=== PATIENT | female | born 1990 | race American Indian/Alaskan Native ===

== ENCOUNTER 2017-08-30 07:31 | Inpatient (IN) | payer MEDICAID ==
[2017-08-30 08:14] LABS: Basophils % (Auto) 0.6 % (0.0-1.8); Eosinophils % (Auto) 2.3 % (0.0-4.3); Hematocrit 31.8 % (30.3-42.9); Hemoglobin 10.4 gm/dl (10.1-14.3); Mean Corpuscular HGB Conc 33 % (30-34); Mean Corpuscular Hemoglobin 29 pg (28-32); Mean Corpuscular Volume 90 fl (79-97); Platelet Count 452 K/mm3 (140-440); Red Blood Count 3.55 M/mm3 (3.65-5.03); Red Cell Distribution Width 14.3 % (13.2-15.2); White Blood Count 9.6 K/mm3 (4.5-11.0)
[2017-08-30 08:34] LABS: Anion Gap 20 mmol/L; BUN/Creatinine Ratio 13; Blood Urea Nitrogen 9 mg/dL (7-17); Calcium 9.2 mg/dL (8.4-10.2); Carbon Dioxide 21 mmol/L (22-30); Chloride 100.8 mmol/L (98-107); Glucose 75 mg/dL (65-100); Potassium 3.8 mmol/L (3.6-5.0); Sodium 138 mmol/L (137-145)
--- NOTE | 2017-08-30 09:31 | Event Note ---
Date: 08/30/17929 vss in sub waiting
--- NOTE | 2017-08-30 10:33 | XRay Report ---
FINAL REPORT EXAM: XR CHEST 1V AP HISTORY: Shortness of breath TECHNIQUE: Chest, one view PRIORS: None. FINDINGS: The heart size is normal. Mediastinal contours are normal. Pulmonary vasculature is not congested. The lungs are clear. There are no pleural effusion seen. There is no evidence of pneumothorax. IMPRESSION: There is no acute abnormality identified.
[2017-08-30] MEDS ORDERED: NACL 0.9% 500 ML 500 ML IV ONE (12:35)
[2017-08-30] MEDS ORDERED: MORPHINE IV ONE (12:35)
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
--- NOTE | 2017-08-30 14:20 | Cat Scan Report ---
FINAL REPORT EXAM: CT ANGIO CHEST HISTORY: CP, elevated dimer TECHNIQUE: CT angiography of the chest performed. 100 cc Omnipaque 350 IV was administered. Coronal and sagittal reformatted images were obtained. PRIORS: None. FINDINGS: There is a solitary pulmonary embolus in a segmental segmental artery in the right lower lobe. No other pulmonary emboli are seen. There is no pleural effusion or pneumothorax. The lungs are clear. There is no significant mediastinal or hilar mass seen. IMPRESSION: There is a single nonocclusive segmental pulmonary embolus and right lower lobe.
[2017-08-30] MEDS ORDERED: HEPARIN 10,000 UNITS/10 ML IV ONE (14:29)
[2017-08-30] MEDS ORDERED: DILAUDID IV ONE ×2 (14:30→20:29)
[2017-08-30] MEDS ORDERED: HEPARIN/ 0.45% NACL-25,000 UNIT/500 ML 25,000 UNIT/500 ML BAG IV SCH (15:00)
[2017-08-30 15:33] LABS: INR 1.01 (0.87-1.13)
[2017-08-30 15:34] LABS: Partial Thromboplastin Time 28.1 Sec. (24.2-36.6)
[2017-08-30] MEDS ORDERED: DULCOLAX PR PRN (17:29)
[2017-08-30] MEDS ORDERED: TYLENOL PO PRN (17:29)
[2017-08-30] MEDS ORDERED: MILK OF MAGNESIA PO PRN (17:29)
[2017-08-30] MEDS ORDERED: DILAUDID IV PRN (17:35)
[2017-08-30] MEDS ORDERED: PERCOCET 5/325 PO PRN (17:35)
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
[2017-08-30] MEDS ORDERED: DILAUDID ONE (18:24)
[2017-08-30] MEDS: APRESOLINE IV PRN (18:30)
[2017-08-30] MEDS ORDERED: RESTORIL PO ONE (20:31)
[2017-08-30] MEDS: MS CONTIN ER PO SCH (21:07)
[2017-08-31] MEDS: DILAUDID IV PRN ×5 (00:58→21:56)
[2017-08-31] MEDS: MS CONTIN ER PO SCH ×4 (05:30→21:54)
[2017-08-31] MEDS: ZOFRAN IV PRN ×2 (07:53→16:49)
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
[2017-08-31] MEDS: ELIQUIS PO SCH ×2 (09:31→21:55)
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
[2017-08-31] MEDS: PERCOCET 5/325 PO PRN (12:38)
[2017-08-31] MEDS: APRESOLINE IV PRN (16:49)
[2017-08-31] MEDS ORDERED: RESTORIL PO PRN (22:00)
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
[2017-09-01] MEDS: DILAUDID IV PRN ×5 (03:57→20:49)
[2017-09-01] MEDS: MS CONTIN ER PO SCH ×3 (05:24→23:17)
[2017-09-01 05:29] LABS: Basophils % (Auto) 0.3 % (0.0-1.8); Eosinophils % (Auto) 1.2 % (0.0-4.3); Hematocrit 32.1 % (30.3-42.9); Hemoglobin 10.8 gm/dl (10.1-14.3); Mean Corpuscular HGB Conc 34 % (30-34); Mean Corpuscular Hemoglobin 30 pg (28-32); Mean Corpuscular Volume 90 fl (79-97); Platelet Count 420 K/mm3 (140-440); Red Blood Count 3.57 M/mm3 (3.65-5.03); Red Cell Distribution Width 14.3 % (13.2-15.2); White Blood Count 8.6 K/mm3 (4.5-11.0)
[2017-09-01 05:42] LABS: Anion Gap 15 mmol/L; BUN/Creatinine Ratio 13; Blood Urea Nitrogen 8 mg/dL (7-17); Calcium 9.2 mg/dL (8.4-10.2); Carbon Dioxide 27 mmol/L (22-30); Chloride 95.7 mmol/L (98-107); Glucose 92 mg/dL (65-100); Potassium 3.9 mmol/L (3.6-5.0); Sodium 134 mmol/L (137-145)
--- NOTE | 2017-09-01 08:08 | Vascular Lab Report ---
LOWER EXTREMITY VENOUS DUPLEX: REASON FOR EXAM: Edema of the lower extremities. COMMENTS ON THE RIGHT: All veins visualized are freely compressible without evidence of internal echogenicity. Flow is spontaneous and phasic throughout. COMMENTS ON THE LEFT: All veins visualized are freely compressible without evidence of internal echogenicity. Flow is spontaneous and phasic throughout. IMPRESSION: No evidence of acute or chronic deep venous thrombosis in either lower extremity.
[2017-09-01] MEDS: ELIQUIS PO SCH ×2 (09:16→23:18)
[2017-09-01] MEDS: NORVASC PO SCH (09:16)
--- NOTE | 2017-09-01 09:17 | Hem/Onc Progress Note ---
Assessment and Plan Patient can be discharged on the eliquis. I can follow with the patient as op Subjective Date of service: 09/01/17 Interval history: still having pain. Objective - Constitutional Vitals: Last Vital Signs Temp 98.5 F 09/01/17 07:33 Pulse 106 H 09/01/17 07:33 Resp 16 09/01/17 07:33 BP 145/102 09/01/17 07:33 Pulse Ox 100 09/01/17 07:33 - Neck Neck: supple - Respiratory Respiratory: bilateral: CTA - Cardiovascular Rhythm: regular - Gastrointestinal General gastrointestinal: Present: soft - Labs Lab Results: Laboratory Results - last 24 hr 09/01/17 09/01/17 04:46 04:46 WBC 8.6 RBC 3.57 L Hgb 10.8 Hct 32.1 MCV 90 MCH 30 MCHC 34 RDW 14.3 Plt Count 420 Lymph % (Auto) 16.7 [place] % (Auto) 5.7 Eos % (Auto) 1.2 Baso % (Auto) 0.3 Lymph # 1.4 [place] # 0.5 Eos # 0.1 Baso # 0.0 Seg Neutrophils % 76.1 H Seg Neutrophils # 6.5 Sodium 134 L Potassium 3.9 Chloride 95.7 L Carbon Dioxide 27 Anion Gap 15 BUN 8 Creatinine 0.6 L Estimated GFR > 60 BUN/Creatinine Ratio 13 Glucose 92 Calcium 9.2
[2017-09-01] MEDS: ZOFRAN IV PRN (09:21)
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
[2017-09-01] MEDS ORDERED: ALUM-MAG HYDROX-SIMETH 200-200-20MG/5ML PO PRN (12:24)
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
[2017-09-01] MEDS ORDERED: NACL ONE (19:56)
--- NOTE | 2017-09-01 21:10 | Cat Scan Report ---
FINAL REPORT PROCEDURE: CT ABDOMEN PELVIS W CON TECHNIQUE: Computerized axial tomography of the abdomen and pelvis was performed after the IV injection of iodinated nonionic contrast. HISTORY: Nausea and vomiting. COMPARISON: No prior studies are available for comparison. FINDINGS: Lower Lung epstein: Thin linear band of atelectasis or scarring seen in the left posterior costophrenic angle. Lung bases otherwise are unremarkable. Upper Abdomen: The liver is unremarkable with the exception of a slightly ill-defined area of decreased density along the right side of the falciform ligament which is a common area for focal fatty infiltration. On the delayed images this is isointense to the liver. The liver is otherwise unremarkable. Gallbladder is unremarkable. The adrenal glands, the pancreas and the spleen are unremarkable. Kidneys, Ureters and Urinary bladder: Multiple asymmetric areas of cortical thinning visualized in the renal cortex of the right kidney appear to represent parenchymal scars. No renal masses are identified. There is no hydronephrosis. Small nonobstructing calculus measuring 4 millimeters suspected in the lower 3rd of the right kidney. The kidneys, ureters and urinary bladder otherwise are unremarkable. Retroperitoneum: Abdominal aorta appears normal. Nonspecific subcentimeter lymph nodes are seen in the retroperitoneum. No pathologically enlarged lymph nodes are identified. Bowel: No focal bowel abnormalities are identified. No evidence of bowel obstruction ascites or free intraperitoneal gas. Normal-appearing appendix projects into the mid pelvis posteriorly. Reproductive organs: Uterus and right adnexa are unremarkable. There is a lobulated density in the left adnexa with both fat-density portions and small calcifications. The appearance suggest a teratoma. This measures 3.4 x 5.3 centimeters. 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 Skiff Operator consultation suggested. Probable focal fatty infiltration of the liver adjacent to the right side of the falciform ligament. If clinically indicated MRI of the liver could be obtained with in and out of phase imaging to confirm. Multiple renal cortical scars visualize right kidney. Small nonobstructing calculus visualized lower 3rd right kidney. No other abnormalities are identified.
[2017-09-01] MEDS: REMERON PO SCH (23:19)
[2017-09-02] MEDS: DILAUDID IV PRN ×6 (01:13→22:10)
[2017-09-02] MEDS: APRESOLINE IV PRN (05:17)
[2017-09-02] MEDS: MS CONTIN ER PO SCH ×3 (06:21→21:58)
--- NOTE | 2017-09-02 09:35 | Hem/Onc Progress Note ---
Assessment and Plan Continue eliquis. Would need it for 4-6 months. Given my business card. I can follow her as outpatient. CT findings noted. May need PATENTS EXAMINER evaluation. Subjective Date of service: 09/02/17 Interval history: still having pain. CT findings noted . Denies any active bleeding. Tolerating eliquis well Objective - Constitutional Vitals: Last Vital Signs Temp 98.5 F 09/02/17 07:05 Pulse 118 H 09/02/17 07:05 Resp 15 09/02/17 07:05 BP 134/92 09/02/17 07:05 Pulse Ox 99 09/02/17 07:05 - Neck Neck: supple - Respiratory Respiratory effort: Positive: normal Respiratory: bilateral: diminished - Cardiovascular Rhythm: regular - Gastrointestinal General gastrointestinal: Present: soft
[2017-09-02] MEDS: ELIQUIS PO SCH ×2 (09:36→22:09)
[2017-09-02] MEDS: NORVASC PO SCH (09:36)
[2017-09-02] MEDS ORDERED: LOPRESSOR PO ONE (09:50)
[2017-09-02] MEDS: ZOFRAN IV PRN (10:11)
[2017-09-02] MEDS: LOPRESSOR PO SCH ×2 (13:39→21:59)
[2017-09-02] MEDS ORDERED: LOPRESSOR FEEDTUBE STA (13:42)
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
[2017-09-02] MEDS: REMERON PO SCH (21:59)
[2017-09-03] MEDS: DILAUDID IV PRN ×3 (02:25→12:51)
[2017-09-03 05:57] LABS: Hematocrit 34.3 % (30.3-42.9); Hemoglobin 11.5 gm/dl (10.1-14.3)
[2017-09-03] MEDS: MS CONTIN ER PO SCH ×2 (06:13→13:39)
[2017-09-03] MEDS: NORVASC PO SCH (11:17)
[2017-09-03] MEDS: LOPRESSOR PO SCH (11:18)
[2017-09-03 11:19] VITALS: BP 144/97
--- NOTE | 2017-09-03 11:50 | Hem/Onc Progress Note ---
Assessment and Plan Patient to continue eliquis.. If she has to have any procedures, it will have to be held for 2 days. I have given the patient my card. I'll follow-up as outpatient. If ASTHMA EDUCATOR wants to talk to me op and they can call me also. Subjective Date of service: 09/03/17 Interval history: still having pain. CT findings noted . Denies any active bleeding. Tolerating eliquis well. ASTHMA EDUCATOR note appreciated Objective - Constitutional Vitals: Last Vital Signs Temp 98.4 F 09/03/17 07:40 Pulse 114 H 09/03/17 11:18 Resp 18 09/03/17 08:44 BP 144/97 09/03/17 11:18 Pulse Ox 98 09/03/17 07:40 General appearance: no acute distress Performance status: 2- selfcare, ambulatory - Neck Neck: supple - Respiratory Respiratory effort: Positive: normal Respiratory: bilateral: diminished - Cardiovascular Rhythm: regular - Gastrointestinal General gastrointestinal: Present: soft - Labs Lab Results: Laboratory Results - last 24 hr 09/03/17 05:27 Hgb 11.5 Hct 34.3 Plt Count 455 H
[2017-09-03] MEDS: ELIQUIS PO SCH (13:39)
[2017-09-03] MEDS: PERCOCET 5/325 PO PRN (14:40)
== END 2017-09-03 15:30 | disposition home or self-care (01) | DRG 176 ==
LOC: ED 07:31 → 3A 17:29
PROVIDERS: ADMIT Internal Medicine; ATTEND Internal Medicine
DX: I26.99 Other pulmonary embolism without acute cor pulmonale (principal); I10 Essential (primary) hypertension; F32.9 Major depressive disorder, single episode, unspecified; F41.9 Anxiety disorder, unspecified; Z91.013 Allergy to seafood; Z82.49 Family history of ischemic heart disease and other diseases of the circulatory system; F43.10 Post-traumatic stress disorder, unspecified
CPT/HCPCS: 36415; 71010; 71275; 74177; 80048; 84484; 84703; 85014; 85018; 85025; 85049; 85379; 85520; 85610; 85730; 93005; 93010; 93970; 96374; 96375; J0360; J1170; J1644; J2270; J2405; J7040; Q9967

== ENCOUNTER 2018-10-16 18:32 | Emergency (ER) | payer MEDICAID ==
[2018-10-16 18:56] VITALS: BP 149/104
[2018-10-16] MEDS ORDERED: XYLOCAINE 1% MPF 5 mL INFILTRATI ONE (19:18)
[2018-10-16] MEDS ORDERED: CLEOCIN PO ONE (19:18)
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
[2018-10-16] MEDS ORDERED: NORCO 5/325 PO ONE (19:23)
--- NOTE | 2018-10-16 20:22 | XRay Report ---
FINAL REPORT EXAM: XR FINGER(S) 2+V RT HISTORY: swelling pain TECHNIQUE: AP view of the right hand and 2 additional views of the right index finger PRIORS: None. FINDINGS: The bones are normally aligned and mineralized. The joint spaces are well-preserved. There is no evid ence of acute fracture. There is prominent soft tissue swelling at the level of the middle phalanx of the index finger. There is no foreign body. IMPRESSION: Soft tissue swelling. No evidence of acute fracture or foreign body.
== END 2018-10-16 20:40 | disposition home or self-care (01) ==
LOC: ED 18:32
DX: L03.011 Cellulitis of right finger (principal)
CPT/HCPCS: 99283

== ENCOUNTER 2020-10-29 22:35 | Emergency (ER) | payer MEDICAID ==
[2020-10-29] MEDS ORDERED: ONDANSETRON 4 MG ODT TAB PO STA (23:50)
[2020-10-30 00:27] LABS: Alanine Aminotransferase 9 units/L (7-56); Albumin 4.2 g/dL (3.9-5)
[2020-10-30 00:30] LABS: Basophils % (Auto) 0.4 % (0.0-1.8); Bilirubin,Direct < 0.2 mg/dL (0-0.2); Eosinophils # (Auto) 0.1 K/mm3 (0.0-0.4); Eosinophils % (Auto) 1.5 % (0.0-4.3); Hemoglobin 12.3 gm/dl (10.1-14.3); Lymphocytes # (Auto) 2.3 K/mm3 (1.2-5.4); Lymphocytes % (Auto) 34.2 % (13.4-35.0); Mean Corpuscular HGB Conc 33 % (30-34); Mean Corpuscular Volume 91 fl (79-97); Monocytes # (Auto) 0.5 K/mm3 (0.0-0.8); Monocytes % (Auto) 7.6 % (0.0-7.3); Platelet Count 255 K/mm3 (140-440); Red Blood Count 4.06 M/mm3 (3.65-5.03); Red Cell Distribution Width 13.7 % (13.2-15.2)
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
[2020-10-30 02:22] VITALS: BP 119/76
[2020-10-30 02:59] LABS: Bilirubin,Urine NEG (Negative); Blood,Urine NEG (Negative); Color,Urine Yellow (Yellow); Mucus,Urine 2+ /HPF; Protein,Urine <15 mg/dL mg/dL (Negative)
== END 2020-10-30 02:22 | disposition home or self-care (01) ==
LOC: ED 22:35
DX: O21.8 Other vomiting complicating pregnancy (principal); Z79.899 Other long term (current) drug therapy; Z91.013 Allergy to seafood; Z98.890 Other specified postprocedural states; Z3A.01 Less than 8 weeks gestation of pregnancy
CPT/HCPCS: 36415; 80076; 81001; 83690; 84703; 85025; 87086; Q0162

== ENCOUNTER 2022-05-18 00:32 | Observation (INO) | payer MEDICAID ==
[2022-05-18 03:42] LABS: Basophils # (Auto) 0.1 K/mm3 (0.0-0.1); Basophils % (Auto) 0.7 % (0.0-1.8); Eosinophils # (Auto) 0.1 K/mm3 (0.0-0.4); Hematocrit 38.3 % (30.3-42.9); Hemoglobin 12.7 gm/dl (10.1-14.3); Lymphocytes # (Auto) 2.7 K/mm3 (1.2-5.4); Lymphocytes % (Auto) 37.5 % (13.4-35.0); Mean Corpuscular HGB Conc 33 % (30-34); Mean Corpuscular Volume 89 fl (79-97); Monocytes # (Auto) 0.4 K/mm3 (0.0-0.8); Monocytes % (Auto) 5.6 % (0.0-7.3); Platelet Count 206 K/mm3 (140-440); Red Blood Count 4.29 M/mm3 (3.65-5.03); Red Cell Distribution Width 13.7 % (13.2-15.2)
[2022-05-18 03:54] LABS: BUN/Creatinine Ratio 23; Blood Urea Nitrogen 18 mg/dL (7-17); Calcium 8.4 mg/dL (8.4-10.2); Hemolysis Index 7
[2022-05-18] MEDS ORDERED: NITROGLYCERIN 0.4 MG TAB SUBL SL ONE (04:40)
--- NOTE | 2022-05-18 04:40 | XRay Report ---
CHEST 1 VIEW 05/18/2022 3:26 AM INDICATION / CLINICAL INFORMATION: Chest Pain. COMPARISON: None available. FINDINGS: SUPPORT DEVICES: None. HEART / MEDIASTINUM: No significant abnormality. LUNGS / PLEURA: Bilateral mid and lower lung opacities No pneumothorax. ADDITIONAL FINDINGS: No significant additional findings. IMPRESSION: 1. Increased opacities in bilateral mid and lower lungs. Signer Name: Saul Ramos MD Signed: 05/18/2022 4:35 AM Workstation Name: [id number]
[2022-05-18] MEDS ORDERED: FUROSEMIDE 40 MG/4 ML INJ IV ONE (04:42)
[2022-05-18] MEDS ORDERED: MORPHINE 2 MG/1 ML INJ IV PRN (05:19)
[2022-05-18] MEDS ORDERED: MORPHINE 4 MG/1 ML INJ IV PRN (05:19)
[2022-05-18] MEDS ORDERED: ALBUTEROL 2.5 MG/3 ML NEBU IH PRN (05:19)
[2022-05-18] MEDS ORDERED: ACETAMINOPHEN 325 MG TAB PO PRN (05:19)
[2022-05-18] MEDS ORDERED: ONDANSETRON 4 MG/2 ML INJ IV PRN (05:19)
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
--- NOTE | 2022-05-18 05:29 | History and Physical Report ---
History of Present Illness Date of examination: 05/18/22 Date of admission: 05/18/22 Chief complaint: Dyspnea Respiratory distress History of present illness: 32 years old female with history of chf, pulmonary embolism, suicidal attempt was brought to the hospital because of dyspnea and respiratory distress for the past 2 days. Patient is breathing 30 times per minute. Patient denies any chest pain in the ER patient is found to have acute CHF exacerbation. Chest x- ray shows increased opacities in the bilateral mid and lower lungs. Past History Past Medical History: other (Pulmonary embolism suicidal attempt) Past Surgical History: No surgical history Social history: no significant social history Family history: no significant family history Medications and Allergies Allergies Allergy/AdvReac Type Severity Reaction Status Date / Time SEAFOOD Allergy Hives Uncoded 09/07/16 17:42 Home Medications Medication Instructions Recorded Confirmed Last Taken Type FLUoxetine HCL [Fluoxetine HCl] 10 mg PO QDAY 08/31/18 09/26/18 09/15/18 History Lovenox 40 mg SUB-Q QDAY 08/31/18 09/26/18 09/15/18 History Pnv No.95/Ferrous Fum/Folic AC 1 each PO QDAY 09/26/18 09/26/18 09/15/18 History [ Vitamin Tablet] Ibuprofen [Motrin 600 MG tab] 600 mg PO Q8H PRN #30 tablet 10/01/18 Unknown Rx Multivitamin with Iron 1 each PO DAILY #30 tablet 10/01/18 Unknown Rx [Multivitamins with Iron] oxyCODONE /ACETAMINOPHEN [Percocet 1 tab PO Q6HR PRN #30 tablet 10/01/18 Unknown Rx 5/325] FLUoxetine [PROzac] 10 mg PO QDAY #30 tablet 10/05/18 Unknown Rx Ferrous Sulfate [Feosol 325 MG tab] 325 mg PO BID #60 tablet 10/05/18 Unknown R x Clindamycin [Clindamycin CAP] 300 mg PO Q6H #40 capsule 10/16/18 Unknown Rx traMADoL [Ultram] 50 mg PO Q6HR PRN #12 tablet 10/16/18 Unknown Rx Doxylamine Succinate/Vit B6 1 each PO TID #30 tablet. 10/30/20 Unknown Rx [Neil Castellanos 10-10 mg Tablet] Review of Systems All systems: negative Cardiovascular: orthopnea, palpitations, edema, shortness of breath, dyspnea on exertion Exam - Constitutional Vitals: Temp Pulse Resp BP Pulse Ox 98.5 F 93 H 30 H 168/122 98 05/18/22 02:47 05/18/22 05:16 05/18/22 05:16 05/18/22 05:16 05/18/22 05:16 General appearance: Present: no acute distress, well-nourished - EENT Eyes: Present: PERRL ENT: hearing intact, clear oral mucosa - Neck Neck: Present: supple, normal ROM - Respiratory Respiratory effort: normal Respiratory: bilateral: CTA, rales - Cardiovascular Heart Sounds: Present: S1 & S2. Absent: rub, click - Extremities Extremities: pulses symmetrical, No edema Peripheral Pulses: within normal limits - Abdominal General gastrointestinal: Present: soft, non-tender, non-distended, normal bowel sounds Female genitourinary: Present: normal - Integumentary Integumentary: Present: clear, warm, dry - Musculoskeletal Musculoskeletal: gait normal, strength equal bilaterally - Psychiatric Psychiatric: appropriate mood/affect, intact judgment & insight - Neurologic Neurologic: CNII-XII intact, moves all extremities HEART Score - HEART Score Troponin: Troponin T < 0.010 ng/mL (0.00-0.029) 05/18/22 03:30 Results - Labs CBC & Chem 7: 05/18/22 03:30 05/18/22 03:30 Labs: Laboratory Last Values WBC 7.3 K/mm3 (4.5-11.0) 05/18/22 03:30 RBC 4.29 M/mm3 (3.65-5.03) 05/18/22 03:30 Hgb 12.7 gm/dl (10.1-14.3) 05/18/22 03:30 Hct 38.3 % (30.3-42.9) 05/18/22 03:30 MCV 89 fl (79-97) 05/18/22 03:30 MCH 30 pg (28-32) 05/18/22 03:30 MCHC 33 % (30-34) 05/18/22 03:30 RDW 13.7 % (13.2-15.2) 05/18/22 03:30 Plt Count 206 K/mm3 (140-440) 05/18/22 03:30 Lymph % (Auto) 37.5 % (13.4-35.0) H 05/18/22 03:30 Isabella % (Auto) 5.6 % (0.0-7.3) 05/18/22 03:30 Eos % (Auto) 2.0 % (0.0-4.3) 05/18/22 03:30 Baso % (Auto) 0.7 % (0.0-1.8) 05/18/22 03:30 Lymph # (Auto) 2.7 K/mm3 (1.2-5.4) 05/18/22 03:30 Isabella # (Auto) 0.4 K/mm3 (0.0-0.8) 05/18/22 03:30 Eos # (Auto) 0.1 K/mm3 (0.0-0.4) 05/18/22 03:30 Baso # (Auto) 0.1 K/mm3 (0.0-0.1) 05/18/22 03:30 Seg Neutrophils % 54.2 % (40.0-70.0) 05/18/22 03:30 Seg Neutrophils # 3.9 K/mm3 (1.8-7.7) 05/18/22 03:30 Sodium 136 mmol/L (137-145) L 05/18/22 03:30 Potassium 3.1 mmol/L (3.6-5.0) L 05/18/22 03:30 Chloride 100.0 mmol/L (98-107) 05/18/22 03:30 Carbon Dioxide 25 mmol/L (22-30) 05/18/22 03:30 Anion Gap 14 mmol/L 05/18/22 03:30 BUN 18 mg/dL (7-17) H 05/18/22 03:30 Creatinine 0.8 mg/dL (0.6-1.2) 05/18/22 03:30 Estimated GFR > 60 ml/min 05/18/22 03:30 BUN/Creatinine Ratio 23 % 05/18/22 03:30 Glucose 102 mg/dL (65-100) H 05/18/22 03:30 Calcium 8.4 mg/dL (8.4-10.2) 05/18/22 03:30 Troponin T < 0.010 ng/mL (0.00-0.029) 05/18/22 03:30 HCG, Qual Negative (Negative) 05/18/22 03:30 - Imaging and Cardiology Chest x-ray: report reviewed Assessment and Plan VTE prophylaxis?: Chemical Plan of care discussed with patient/family: Yes - Patient Problems (1) CHF exacerbation Status: Acute Plan to address problem: Admit the patient to the medical telemetry. Cardiac diet. Oxygen by nasal cannula 3 L/min. Fluid restriction. Daily weight. Maintain input output. Lasix 40 mg IV every 12 hours. Echocardiogram. Consult cardiology if needed (2) Hypokalemia Status: Acute Plan to address problem: Potassium 40 mEq p.o. x1 dose. We will recheck the BMP in the morning (3) Pulmonary embolus Status: Acute Plan to address problem: Patient completed course of anticoagulation . We will put the patient on heparin 5000 units subcu every 12 hours for DVT prophylaxis (4) DVT prophylaxis Status: Acute Plan to address problem: Heparin 5000 units subcu every 12 hours for DVT prophylaxis. Pepcid 20 mg p.o. twice daily for GI prophylaxis. Patient is a full code
[2022-05-18] MEDS: FUROSEMIDE 40 MG/4 ML INJ IV SCH ×2 (06:17→18:31)
[2022-05-18] MEDS: CLINDAMYCIN 300 MG CAP PO SCH ×3 (06:28→18:32)
[2022-05-18] MEDS: IPRATROPIUM/ALBUTEROL SULFATE 3 ML AMPUL.NEB IH SCH ×3 (08:50→21:19)
[2022-05-18] MEDS ORDERED: [UNRECOGNIZED DRUG - REMARK] PO SCH (10:00)
[2022-05-18] MEDS ORDERED: hydrALAZINE 20 MG/1 ML INJ IV SCH (11:00)
[2022-05-18] MEDS: FERROUS SULFATE 325 MG TAB PO SCH ×2 (11:04→22:50)
[2022-05-18] MEDS: FAMOTIDINE 20 MG TAB PO SCH ×2 (11:04→22:51)
[2022-05-18] MEDS: HEPARIN 5,000 UNIT/1 ML VIAL SUB-Q SCH ×2 (11:04→22:51)
[2022-05-18] MEDS: FLUoxetine 10 MG TAB PO SCH (11:05)
--- NOTE | 2022-05-18 11:39 | Progress Note ---
Assessment and Plan Assessment and plan: COVID-negative 05/18/2022 --Acute on chronic-systolic CHF[35 to 40% EF] medical telemetry. Cardiac diet. Oxygen by nasal cannula 3 L/min. Fluid restriction. Daily weight. Maintain input output. IV diuretics Beta-blockers, INÉS inhibitors, low-sodium diet Cardiology consult if needed --Hypokalemia Replenish per protocol KCl 60 mg p.o. x1 Check magnesium, follow electrolytes --History of pulmonary embolus Currently not on anticoagulation[completed the treatment] Supportive care --Acute depression; Patient does not want to share the details Denies suicidal or homicidal thoughts denies suicidal ideation Psych consulted --Full CODE STATUS; --DVT/GI prophylaxis Heparin 5000 units subcu every 12 hours for DVT prophylaxis. Pepcid 20 mg p.o. twice daily for GI prophylaxis. Follow echocardiogram for LV function ejection fraction Follow clinically Discharge when medically stable We will closely monitor the patient and adjust management as needed Plan of care reviewed with the patient and her nurse Advance care plan; Patient was very emotional and crying; counseling done patient strongly advised to seek Psychiatrist assistance in coping with her depression and overwhelming situation Also advised to comply with medications, diet, follow-up visits I discussed with her health medical condition, diagnosis, tests and reports, her treatment plan She verbalized understanding and answered all her questions additional time 35 minutes Patient was admitted early this morning, prolonged care inpatient/30 minutes History Interval history: Seen and examined the patient at the bedside Patient's chart and medications reviewed Patient is very depressed and crying, Does not give any details She wanted to leave AGAINST MEDICAL ADVICE The nurse and I counseled and explained the importance of staying back and completing the treatment and getting better Vital signs noted Hospitalist Physical - Constitutional Vitals: Temp Pulse Resp BP Pulse Ox 97.2 F L 109 H 18 168/122 100 05/18/22 11:16 05/18/22 11:16 05/18/22 11:16 05/18/22 11:16 05/18/22 11:16 General appearance: Present: no acute distress, well-nourished - EENT Eyes: Present: PERRL, EOM intact - Neck Neck: Present: supple, normal ROM - Respiratory Respiratory effort: normal Respiratory: bilateral: diminished, negative: rales, rhonchi, wheezing - Cardiovascular Rhythm: regular Heart Sounds: Present: S1 & S2 - Extremities Extremities: no ischemia, No edema - Abdominal General gastrointestinal: soft, non-tender, non-distended, normal bowel sounds - Integumentary Integumentary: Present: clear, warm - Psychiatric Psychiatric: appropriate mood/affect, cooperative - Neurologic Neurologic: CNII-XII intact, moves all extremities HEART Score - HEART Score Troponin: Troponin T < 0.010 ng/mL (0.00-0.029) 05/18/22 03:30 Results - Labs CBC & Chem 7: 05/18/22 03:30 05/18/22 03:30 Labs: Laboratory Last Values WBC 7.3 K/mm3 (4.5-11.0) 05/18/22 03:30 RBC 4.29 M/mm3 (3.65-5.03) 05/18/22 03:30 Hgb 12.7 gm/dl (10.1-14.3) 05/18/22 03:30 Hct 38.3 % (30.3-42.9) 05/18/22 03:30 MCV 89 fl (79-97) 05/18/22 03:30 MCH 30 pg (28-32) 05/18/22 03:30 MCHC 33 % (30-34) 05/18/22 03:30 RDW 13.7 % (13.2-15.2) 05/18/22 03:30 Plt Count 206 K/mm3 (140-440) 05/18/22 03:30 Lymph % (Auto) 37.5 % (13.4-35.0) H 05/18/22 03:30 [place] % (Auto) 5.6 % (0.0-7.3) 05/18/22 03:30 Eos % (Auto) 2.0 % (0.0-4.3) 05/18/22 03:30 Baso % (Auto) 0.7 % (0.0-1.8) 05/18/22 03:30 Lymph # (Auto) 2.7 K/mm3 (1.2-5.4) 05/18/22 03:30 [place] # (Auto) 0.4 K/mm3 (0.0-0.8) 05/18/22 03:30 Eos # (Auto) 0.1 K/mm3 (0.0-0.4) 05/18/22 03:30 Baso # (Auto) 0.1 K/mm3 (0.0-0.1) 05/18/22 03:30 Seg Neutrophils % 54.2 % (40.0-70.0) 05/18/22 03:30 Seg Neutrophils # 3.9 K/mm3 (1.8-7.7) 05/18/22 03:30 Sodium 136 mmol/L (137-145) L 05/18/22 03:30 Potassium 3.1 mmol/L (3.6-5.0) L 05/18/22 03:30 Chloride 100.0 mmol/L (98-107) 05/18/22 03:30 Carbon Dioxide 25 mmol/L (22-30) 05/18/22 03:30 Anion Gap 14 mmol/L 05/18/22 03:30 BUN 18 mg/dL (7-17) H 05/18/22 03:30 Creatinine 0.8 mg/dL (0.6-1.2) 05/18/22 03:30 Estimated GFR > 60 ml/min 05/18/22 03:30 BUN/Creatinine Ratio 23 % 05/18/22 03:30 Glucose 102 mg/dL (65-100) H 05/18/22 03:30 Calcium 8.4 mg/dL (8.4-10.2) 05/18/22 03:30 Troponin T < 0.010 ng/mL (0.00-0.029) 05/18/22 03:30 NT-Pro-B Natriuret Pep 1886 pg/mL (0-450) H 05/18/22 Unknown HCG, Qual Negative (Negative) 05/18/22 03:30 Active Medications - Current Medications Current Medications: Generic Name Dose Route Start Last Admin Trade Name Freq PRN Reason Stop Dose Admin Acetaminophen 650 mg 05/18/22 05:19 05/18/22 11:04 Acetaminophen 325 Mg Tab PO 650 mg Q4H PRN Administration Pain MILD(1-3)/Fever >100.5/SAWYER Albuterol 2.5 mg 05/18/22 05:19 Albuterol 2.5 Mg/3 Ml Nebu IH Q3HRT PRN Shortness Of Breath Albuterol/Ipratropium 1 ampul 05/18/22 08:00 Ipratropium/Albuterol Sulfate 3 Ml Ampul.Neb IH Q6HRT [facility] Clindamycin HCl 300 mg 05/18/22 06:00 05/18/22 06:28 Clindamycin 300 Mg Cap PO 300 mg Q6H ADRIEL Administration Protocol Famotidine 20 mg 05/18/22 10:00 05/18/22 11:04 Famotidine 20 Mg Tab PO 20 mg BID ADRIEL Administration Ferrous Sulfate 325 mg 05/18/22 10:00 05/18/22 11:04 Ferrous Sulfate 325 Mg Tab PO 325 mg BID ADRIEL Administration Fluoxetine HCl 10 mg 05/18/22 10:00 05/18/22 11:05 Fluoxetine 10 Mg Tab PO 10 mg QDAY [facility] Administration Furosemide 40 mg 05/18/22 06:00 05/18/22 06:17 Furosemide 40 Mg/4 Ml Inj IV Not Given BID@0600,1800 [facility] Heparin Sodium (Porcine) 5,000 unit 05/18/22 10:00 05/18/22 11:04 Heparin 5,000 Unit/1 Ml Vial SUB-Q 5,000 unit Q12HR [facility] Administration Hydralazine HCl 20 mg 05/18/22 11:00 05/18/22 11:04 Hydralazine 20 Mg/1 Ml Inj IV 05/18/22 15:00 20 mg ONCE@1100 [facility] Administration Morphine Sulfate 2 mg 05/18/22 05:19 Morphine 2 Mg/1 Ml Inj IV Q4H PRN Pain, Moderate (4-6) Morphine Sulfate 4 mg 05/18/22 05:19 Morphine 4 Mg/1 Ml Inj IV Q4H PRN Pain , Severe (7-10) Multivitamins/Iron/Calcium 1 each 05/18/22 10:00 [id number] Fumarate-Folic Acid Vit Tab PO QDAY [facility] Ondansetron HCl 4 mg 05/18/22 05:19 Ondansetron 4 Mg/2 Ml Inj IV Q8H PRN Nausea And Vomiting Sodium Chloride 10 ml 05/18/22 10:00 05/18/22 11:05 Sodium Chloride 0.9% 10 Ml Flush Syringe IV 10 ml BID ADRIEL Administration Sodium Chloride 10 ml 05/18/22 05:19 Sodium Chloride 0.9% 10 Ml Flush Syringe IV PRN PRN LINE FLUSH
[2022-05-18] MEDS ORDERED: hydrALAZINE 20 MG/1 ML INJ IV PRN (12:20)
[2022-05-18] MEDS: hydrALAZINE 25 MG TAB PO SCH ×2 (14:15→22:50)
--- NOTE | 2022-05-18 14:44 | Electrocardiograph Report ---
[facility] Test Date: 2022-05-18 Test Time: 02:52:36 Pat Name: CATIE BELLAMY Department: Room: A352 Gender: F Resource Paraprofessional: KAYE : 1990 Requested By: FATOU SHIPMAN Order Number: [id number] Reading MD: Savanah Nelson Measurements Intervals [place] Rate: 115 P: 52 MS: 140 QRS: 35 QRSD: 83 T: 28 QT: 347 QTc: 479 Interpretive Statements Sinus tachycardia LAE, consider biatrial enlargement Probable left ventricular hypertrophy Anterolateral Q wave, probably normal for age No previous ECG available for comparison Electronically Signed On 05-18-2022 14:44:44 EDT by Savanah Nelson
[2022-05-18] MEDS: PRENATAL VIT27-FE FUMARATE-FOLIC ACID VIT TAB PO SCH (16:33)
[2022-05-19] MEDS: CLINDAMYCIN 300 MG CAP PO SCH ×2 (04:11→05:42)
[2022-05-19 05:41] VITALS: BP 148/103
[2022-05-19] MEDS: FUROSEMIDE 40 MG/4 ML INJ IV SCH (05:42)
[2022-05-19] MEDS: hydrALAZINE 25 MG TAB PO SCH ×2 (05:42→14:15)
[2022-05-19] MEDS: IPRATROPIUM/ALBUTEROL SULFATE 3 ML AMPUL.NEB IH SCH ×2 (08:05→14:15)
[2022-05-19 08:25] LABS: BUN/Creatinine Ratio 16; Blood Urea Nitrogen 14 mg/dL (7-17); Calcium 8.9 mg/dL (8.4-10.2); Hemolysis Index 1
--- NOTE | 2022-05-19 08:35 | Progress Note ---
Assessment and Plan Assessment and plan: COVID-negative 05/18/2022 --Acute on chronic-systolic CHF[35 to 40% EF] medical telemetry. Cardiac diet. Oxygen by nasal cannula 3 L/min. Fluid restriction. Daily weight. Maintain input output. IV diuretics Beta-blockers, INÉS inhibitors, low-sodium diet Cardiology consult if needed --Hypokalemia Replenish per protocol KCl 60 mg p.o. x1 Check magnesium, follow electrolytes --History of pulmonary embolus Currently not on anticoagulation[completed the treatment] Supportive care --Acute depression; Patient does not want to share the details Denies suicidal or homicidal thoughts denies suicidal ideation Psych consulted --Full CODE STATUS; --DVT/GI prophylaxis Heparin 5000 units subcu every 12 hours for DVT prophylaxis. Pepcid 20 mg p.o. twice daily for GI prophylaxis. Follow echocardiogram for LV function ejection fraction Follow clinically Discharge when medically stable We will closely monitor the patient and adjust management as needed Plan of care reviewed with the patient and her nurse Advance care plan; Patient was very emotional and crying; counseling done patient strongly advised to seek Psychiatrist assistance in coping with her depression and overwhelming situation Also advised to comply with medications, diet, follow-up visits I discussed with her health medical condition, diagnosis, tests and reports, her treatment plan She verbalized understanding and answered all her questions additional time 35 minutes Patient was admitted early this morning, prolonged care inpatient/30 minutes Hospitalist Physical - Constitutional Vitals: Temp Pulse Resp BP Pulse Ox 98.0 F 90 18 148/103 100 05/19/22 04:19 05/19/22 05:42 05/19/22 05:00 05/19/22 05:42 05/19/22 05:00 General appearance: Present: no acute distress, well-nourished HEART Score - HEART Score Troponin: Troponin T < 0.010 ng/mL (0.00-0.029) 05/18/22 03:30 Results - Labs CBC & Chem 7: 05/18/22 03:30 05/18/22 03:30 Labs: Laboratory Last Values WBC 7.3 K/mm3 (4.5-11.0) 05/18/22 03:30 RBC 4.29 M/mm3 (3.65-5.03) 05/18/22 03:30 Hgb 12.7 gm/dl (10.1-14.3) 05/18/22 03:30 Hct 38.3 % (30.3-42.9) 05/18/22 03:30 MCV 89 fl (79-97) 05/18/22 03:30 MCH 30 pg (28-32) 05/18/22 03:30 MCHC 33 % (30-34) 05/18/22 03:30 RDW 13.7 % (13.2-15.2) 05/18/22 03:30 Plt Count 206 K/mm3 (140-440) 05/18/22 03:30 Lymph % (Auto) 37.5 % (13.4-35.0) H 05/18/22 03:30 [place] % (Auto) 5.6 % (0.0-7.3) 05/18/22 03:30 Eos % (Auto) 2.0 % (0.0-4.3) 05/18/22 03:30 Baso % (Auto) 0.7 % (0.0-1.8) 05/18/22 03:30 Lymph # (Auto) 2.7 K/mm3 (1.2-5.4) 05/18/22 03:30 [place] # (Auto) 0.4 K/mm3 (0.0-0.8) 05/18/22 03:30 Eos # (Auto) 0.1 K/mm3 (0.0-0.4) 05/18/22 03:30 Baso # (Auto) 0.1 K/mm3 (0.0-0.1) 05/18/22 03:30 Seg Neutrophils % 54.2 % (40.0-70.0) 05/18/22 03:30 Seg Neutrophils # 3.9 K/mm3 (1.8-7.7) 05/18/22 03:30 Sodium 136 mmol/L (137-145) L 05/18/22 03:30 Potassium 3.1 mmol/L (3.6-5.0) L 05/18/22 03:30 Chloride 100.0 mmol/L (98-107) 05/18/22 03:30 Carbon Dioxide 25 mmol/L (22-30) 05/18/22 03:30 Anion Gap 14 mmol/L 05/18/22 03:30 BUN 18 mg/dL (7-17) H 05/18/22 03:30 Creatinine 0.8 mg/dL (0.6-1.2) 05/18/22 03:30 Estimated GFR > 60 ml/min 05/19/22 Unknown BUN/Creatinine Ratio 16 % 05/19/22 Unknown Glucose 102 mg/dL (65-100) H 05/18/22 03:30 Calcium 8.4 mg/dL (8.4-10.2) 05/18/22 03:30 Troponin T < 0.010 ng/mL (0.00-0.029) 05/18/22 03:30 NT-Pro-B Natriuret Pep 1886 pg/mL (0-450) H 05/18/22 Unknown HCG, Qual Negative (Negative) 05/18/22 03:30 SARS-CoV-2 (PCR) Negative (Negative) 05/18/22 10:40 [place]/IV: Voiding Method Toilet Active Medications - Current Medications Current Medications: Generic Name Dose Route Start Last Admin Trade Name Freq PRN Reason Stop Dose Admin Acetaminophen 650 mg 05/18/22 05:19 05/18/22 11:04 Acetaminophen 325 Mg Tab PO 650 mg Q4H PRN Administration Pain MILD(1-3)/Fever >100.5/SAWYER Albuterol 2.5 mg 05/18/22 05:19 Albuterol 2.5 Mg/3 Ml Nebu IH Q3HRT PRN Shortness Of Breath Albuterol/Ipratropium 1 ampul 05/19/22 08:00 05/19/22 08:05 Ipratropium/Albuterol Sulfate 3 Ml Ampul.Neb IH 1 ampul TIDRT ADRIEL Administration Famotidine 20 mg 05/18/22 10:00 05/18/22 22:51 Famotidine 20 Mg Tab PO 20 mg BID ADRIEL Administration Ferrous Sulfate 325 mg 05/18/22 10:00 05/18/22 22:50 Ferrous Sulfate 325 Mg Tab PO 325 mg BID ADRIEL Administration Fluoxetine HCl 10 mg 05/18/22 10:00 05/18/22 11:05 Fluoxetine 10 Mg Tab PO 10 mg QDAY ADRIEL Administration Furosemide 40 mg 05/18/22 06:00 05/19/22 05:42 Furosemide 40 Mg/4 Ml Inj IV 40 mg BID@0600,1800 ADRIEL Administration Heparin Sodium (Porcine) 5,000 unit 05/18/22 10:00 05/18/22 22:51 Heparin 5,000 Unit/1 Ml Vial SUB-Q 5,000 unit Q12HR [facility]RI[facility] Administration Hydralazine HCl 25 mg 05/18/22 14:00 05/19/22 05:42 Hydralazine 25 Mg Tab PO 25 mg Q8HR ADRIEL Administration Hydralazine HCl 10 mg 05/18/22 12:20 Hydralazine 20 Mg/1 Ml Inj IV Q4H PRN Hypertension Morphine Sulfate 2 mg 05/18/22 05:19 Morphine 2 Mg/1 Ml Inj IV Q4H PRN Pain, Moderate (4-6) Morphine Sulfate 4 mg 05/18/22 05:19 Morphine 4 Mg/1 Ml Inj IV Q4H PRN Pain , Severe (7-10) Multivitamins/Iron/Calcium 1 each 05/18/22 10:00 05/18/22 16:33 [id number] Fumarate-Folic Acid Vit Tab PO Not Given QDAY [facility] Ondansetron HCl 4 mg 05/18/22 05:19 05/18/22 12:56 Ondansetron 4 Mg/2 Ml Inj IV 4 mg Q8H PRN Administration Nausea And Vomiting Sodium Chloride 10 ml 05/18/22 10:00 05/18/22 22:51 Sodium Chloride 0.9% 10 Ml Flush Syringe IV 10 ml BID ADRIEL Administration Sodium Chloride 10 ml 05/18/22 05:19 Sodium Chloride 0.9% 10 Ml Flush Syringe IV PRN PRN LINE FLUSH
[2022-05-19 08:36] LABS: Basophils % (Auto) 0.4 % (0.0-1.8); Eosinophils # (Auto) 0.1 K/mm3 (0.0-0.4); Eosinophils % (Auto) 1.6 % (0.0-4.3); Hematocrit 41.5 % (30.3-42.9); Hemoglobin 13.6 gm/dl (10.1-14.3); Lymphocytes # (Auto) 1.8 K/mm3 (1.2-5.4); Lymphocytes % (Auto) 30.6 % (13.4-35.0); Mean Corpuscular HGB Conc 33 % (30-34); Mean Corpuscular Volume 89 fl (79-97); Monocytes # (Auto) 0.5 K/mm3 (0.0-0.8); Monocytes % (Auto) 8.9 % (0.0-7.3); Platelet Count 225 K/mm3 (140-440); Red Blood Count 4.66 M/mm3 (3.65-5.03); Red Cell Distribution Width 14.1 % (13.2-15.2)
[2022-05-19] MEDS: HEPARIN 5,000 UNIT/1 ML VIAL SUB-Q SCH (10:00)
[2022-05-19] MEDS: FAMOTIDINE 20 MG TAB PO SCH (10:00)
[2022-05-19] MEDS: FLUoxetine 10 MG TAB PO SCH (10:00)
[2022-05-19] MEDS: PRENATAL VIT27-FE FUMARATE-FOLIC ACID VIT TAB PO SCH (10:00)
[2022-05-19] MEDS: FERROUS SULFATE 325 MG TAB PO SCH (10:00)
--- NOTE | 2022-05-19 12:15 | Discharge Summary ---
Providers - Providers Date of Admission: 05/18/22 09:49 Date of discharge: 05/19/22 Attending physician: MARCO ANTONIO JARVIS 05/18/22 13:06 psychiatry consult [Consult to Mental Health] [CONS] Routine Reason For Exam: Acute Depression Primary care physician: ANT SETH Hospitalization Condition: Stable Pertinent studies: Chest x-ray; bilateral infiltrates, CHF Echocardiogram; LVEF 35 to 40% Hospital course: COVID-negative 05/18/2022 --Acute on chronic-systolic CHF[35 to 40% EF] medical telemetry. Cardiac diet. Oxygen by nasal cannula 3 L/min. Fluid restriction. Daily weight. Maintain input output. IV diuretics Beta-blockers, INÉS inhibitors, low-sodium diet Cardiology consult if needed --Hypokalemia Replenish per protocol KCl 60 mg p.o. x1 Check magnesium, follow electrolytes --History of pulmonary embolus Currently not on anticoagulation[completed the treatment] Supportive care --Acute depression; Patient does not want to share the details Denies suicidal or homicidal thoughts denies suicidal ideation Psych consulted Disposition: 01 HOME / SELF CARE / HOMELESS Final Discharge Diagnosis (Prints w/discharge instructions): COVID test is - 05/18/2022. Acute on chronic systolic congestive heart failure EF 35 to 40%. Hypokalemia corrected. History of pulmonary embolus treated. Acute depression stable Time spent for discharge: 35 min Core Measure Documentation - Palliative Care Palliative Care/ Comfort Measures: Not Applicable - Core Measures Any of the following diagnoses?: heart failure - Heart Failure Discharge Requirements INÉS/ARB for LVSD if EF <40%: Yes Beta yovanny at discharge: Yes Exam - Constitutional Vitals: Temp Pulse Resp BP Pulse Ox 98.0 F 95 H 20 148/103 98 05/19/22 04:19 05/19/22 08:05 05/19/22 08:05 05/19/22 05:42 05/19/22 08:46 General appearance: Present: no acute distress, well-nourished - EENT Eyes: Present: PERRL, EOM intact - Neck Neck: Present: supple, normal ROM - Respiratory Respiratory effort: normal Respiratory: bilateral: diminished, negative: rales, rhonchi, wheezing - Cardiovascular Rhythm: regular Heart Sounds: Present: S1 & S2 - Extremities Extremities: no ischemia, No edema - Abdominal General gastrointestinal: Present: soft, non-tender, non-distended, normal bowel sounds - Integumentary Integumentary: Present: clear, warm - Musculoskeletal Musculoskeletal: strength equal bilaterally - Psychiatric Psychiatric: appropriate mood/affect, cooperative - Neurologic Neurologic: moves all extremities Plan Activity: advance as tolerated Diet: other (Cardiac diet as tolerated) Additional Instructions: If you have worsening symptoms contact MD or go to the nearest emergency room as needed. Advised to see private psychiatrist in 1 to 2 weeks or as needed. Strongly advised to comply with medications, diet, follow- up visits per schedule Follow up with: ANT SETH MD [Primary Care Provider] - 7 Days Prescriptions: hydrALAZINE [Apresoline TAB] 25 mg PO Q8HR #90 tablet Ferrous Sulfate [Feosol 325 MG tab] 325 mg PO BID #60 tablet Furosemide [Lasix] 20 mg PO QDAY #30 tablet Famotidine [Pepcid] 20 mg PO BID #30 tablet FLUoxetine [PROzac] 10 mg PO QDAY #30 tablet
[2022-05-19] MEDS ORDERED: POTASSIUM CHLORIDE ER 20 MEQ TAB PO NR (12:30)
--- NOTE | 2022-05-19 14:00 | Consultation ---
History of Present Illness - Reason for Consult Consult date: 05/19/22 Reason for consult: hx of depression - History of Present Psychiatric Illness The patient was seen today. She says she presented to the ER for shortness of breath. The patient says she has CHF. She is a/o x 3. She is calm and cooperative. The patient also says she has a history of bipolar depression. She says she takes Fluoxetine. She says she is compliant with taking it and it works. The patient denies SI/HI or hallucinations. She denies illicit drug use, alcohol or nicotine. The patient says she would like resources for counseling. She smiles and says "I have a lot to talk about so I just need a therapist." PAST PSYCHIATRIC HISTORY: Diagnoses: Bipolar Suicide attempts or Self-harm behavior: 3 years ago in 2019 Prior psychiatric hospitalizations: yes Substance Abuse history: denies Previous psychiatric medications tried: fluoxetine Outpatient treatment: yes PAST MEDICAL HISTORY: PE, CHF Family Psychiatric History: None reported or documented SOCIAL HISTORY Marital Status: Single Living Arrangements: lives alone Employment Status: Employed Access to guns/weapons: Denies Education: high school History of Abuse:Denies Legal History: Denies REVIEW OF SYSTEMS Constitutional: Negative for weight loss ENT: Negative for stridor Respiratory: Negative for cough or hemoptysis All other systems reviewed and are negative MENTAL STATUS EXAMINATION General Appearance and Behavior: Age appropriate, good hygiene, wearing appropriate clothes. calm, cooperative Cooperation: Cooperative Psychomotor Behavior: Psychomotor normal Mood: fine Affect and affective range: congruent with stated mood Thought Process: goal directed Thought Content: None Speech: Normal tone and pace Suicidal Ideation: Denies Homicidal Ideation: Denies Hallucinations: Denies Delusions: none elicited Impulse Control:Good Insight and Judgment: Good insight and poor judgment Memory: Good Attention: Attentive Orientation: a/o Assessment (1) Bipolar Disorder Treatment Plan Continue Fluoxetine previously prescribed by outpatient provider Medical: per primary Disposition: Do not recommend acute psychiatric inpatient treatment Will sign off. Thanks The pattern marking supervisor to give the patient all necessary outpatient resources, including CBT. Case staffed with Dr. Trejo Medications and Allergies Allergies Allergy/AdvReac Type Severity Reaction Status Date / Time SEAFOOD Allergy Hives Uncoded 09/07/16 17:42 Home Medications Medication Instructions Recorded Confirmed Last Taken Type FLUoxetine HCL [Fluoxetine HCl] 10 mg PO QDAY 08/31/18 05/19/2209/15/18 History FLUoxetine [PROzac] 10 mg PO QDAY #30 tablet 05/19/22 Unknown Rx Famotidine [Pepcid] 20 mg PO BID #30 tablet 05/19/22 Unknown Rx Ferrous Sulfate [Feosol 325 MG tab] 325 mg PO BID #60 tablet 05/19/22 Unknown Rx Furosemide [Lasix] 20 mg PO QDAY #30 tablet 05/19/22 Unknown Rx Losartan [Cozaar] 25 mg PO QDAY 05/19/22 05/19/22 Unknown History Potassium Citrate [Potassium 10 meq PO DAILY 05/19/22 05/19/22 Unknown History Citrate ER] carvediloL [Coreg] 2 tab PO BID 05/19/22 05/19/22 Unknown History hydrALAZINE [Apresoline TAB] 25 mg PO Q8HR #90 tablet 05/19/22 Unknown Rx Active Meds: Active Medications Acetaminophen (Acetaminophen 325 Mg Tab) 650 mg PO Q4H PRN PRN Reason: Pain MILD(1-3)/Fever >100.5/SAWYER Last Admin: 05/18/22 11:04 Dose: 650 mg Albuterol (Albuterol 2.5 Mg/3 Ml Nebu) 2.5 mg IH Q3HRT PRN PRN Reason: Shortness Of Breath Albuterol/Ipratropium (Ipratropium/Albuterol Sulfate 3 Ml Ampul.Neb) 1 ampul IH TIDRT [facility] Last Admin: 05/19/22 08:05 Dose: 1 ampul Famotidine (Famotidine 20 Mg Tab) 20 mg PO BID [facility] Last Admin: 05/19/22 10:00 Dose: 20 mg Ferrous Sulfate (Ferrous Sulfate 325 Mg Tab) 325 mg PO BID [facility] Last Admin: 05/19/22 10:00 Dose: 325 mg Fluoxetine HCl (Fluoxetine 10 Mg Tab) 10 mg PO QDAY [facility] Last Admin: 05/19/22 10:00 Dose: 10 mg Furosemide (Furosemide 40 Mg/4 Ml Inj) 40 mg IV BID@0600,1800 [facility] Last Admin: 05/19/22 05:42 Dose: 40 mg Heparin Sodium (Porcine) (Heparin 5,000 Unit/1 Ml Vial) 5,000 unit SUB-Q Q12HR [facility] Last Admin: 05/19/22 10:00 Dose: 5,000 unit Hydralazine HCl (Hydralazine 25 Mg Tab) 25 mg PO Q8HR [facility] Last Admin: 05/19/22 05:42 Dose: 25 mg Hydralazine HCl (Hydralazine 20 Mg/1 Ml Inj) 10 mg IV Q4H PRN PRN Reason: Hypertension Morphine Sulfate (Morphine 2 Mg/1 Ml Inj) 2 mg IV Q4H PRN PRN Reason: Pain, Moderate (4-6) Morphine Sulfate (Morphine 4 Mg/1 Ml Inj) 4 mg IV Q4H PRN PRN Reason: Pain , Severe (7-10) Multivitamins/Iron/Calcium ( Lam13-Yl Fumarate-Folic Acid Vit Tab) 1 each PO QDAY [facility] Last Admin: 05/19/22 10:00 Dose: Not Given Ondansetron HCl (Ondansetron 4 Mg/2 Ml Inj) 4 mg IV Q8H PRN PRN Reason: Nausea And Vomiting Last Admin: 05/18/22 12:56 Dose: 4 mg Potassium Chloride (Potassium Chloride Er 20 Meq Tab) 40 meq PO ONCE@1230 NR Stop: 05/19/22 16:00 Last Admin: 05/19/22 12:44 Dose: 40 meq Sodium Chloride (Sodium Chloride 0.9% 10 Ml Flush Syringe) 10 ml IV BID [facility] Last Admin: 05/19/22 10:00 Dose: 10 ml Sodium Chloride (Sodium Chloride 0.9% 10 Ml Flush Syringe) 10 ml IV PRN PRN PRN Reason: LINE FLUSH Mental Status Exam - Vital signs Last Vital Signs Temp 98.0 F 05/19/22 04:19 Pulse 95 H 05/19/22 08:05 Resp 20 05/19/22 08:05 BP 148/103 05/19/22 05:42 Pulse Ox 98 05/19/22 08:46 Results Result Diagrams: 05/19/22 Unknown 05/19/22 Unknown Abnormal lab results 05/19/22 05/19/22 Range/Units Unknown Unknown [place] % (Auto) 8.9 H (0.0-7.3) % Potassium 3.3 L (3.6-5.0) mmol/L Chloride 97.9 L (98-107) mmol/L All other labs normal.
== END 2022-05-19 15:55 | disposition home or self-care (01) ==
LOC: SUATTDRO 00:32 → ED 00:32 → 3A 09:49 → INTOOBSV 09:49 → 3A 10:05
PROVIDERS: ADMIT Internal Medicine; ATTEND Internal Medicine
DX: I11.0 Hypertensive heart disease with heart failure (principal); Z20.822 Contact with and (suspected) exposure to COVID-19; I50.23 Acute on chronic systolic (congestive) heart failure; E87.6 Hypokalemia; I26.99 Other pulmonary embolism without acute cor pulmonale; F32.A Depression, unspecified; Z79.899 Other long term (current) drug therapy
CPT/HCPCS: 36415; 71045; 80048; 83880; 84484; 84703; 85025; 93005; 94640; 96372; 96374; 96375; 96376; 99285; C8929; G0378; J0360; J1644; J1940; J2405; U0003; 93306